=== PATIENT | male | born 1960 | race Caucasian/White ===

== ENCOUNTER → 2017-12-15 06:35 | Outpatient (CLI) | payer OTHER, SELFPAY ==
--- NOTE | 2017-12-15 | DI.MRI.S_ITS ---
PROCEDURE: MR ANKLE RT WO CON INDICATIONS: PAIN IN RIGHT ANKLE TECHNIQUE: Noncontrast sagittal T1 spin echo and T2 fast spin echo with fat saturation, axial proton density fast spin echo and T2 fast spin echo with fat saturation, coronal T1 spin echo and T2 fast spin echo with fat saturation through the ankle/hindfoot. COMPARISON: [facility], MR, ANKLE WITHOUT CONTRAST, 03/10/2013, 9:59. FINDINGS: Image quality: Diagnostic. Bones and joints: There is no acute fracture, dislocation or, or suspicious osseous lesion identified involving the midfoot or hindfoot joints. There are severe degenerative changes involving the midfoot and hindfoot joints, most pronounced involving the middle subtalar and talonavicular joints. Plantar tilt of the talus with respect to the calcaneus is evident. There is pes planus deformity. The ankle mortise is well-maintained without an osteochondral defect evident. Degenerative cystic changes noted involving the tip of the lateral malleolus. Additional scattered areas of degenerative cystic change are noted involving the talus, calcaneus, navicular, and all of the tarsal bones. The degree degenerative changes are slightly more prominent on the current study, compared to the prior study. Medial structures: The deltoid ligament is thickened, likely related to scarring. No full-thickness tear is evident. The spring ligament is also noted to be intact. The tibialis posterior tendon is not well-seen related to scarring along the medial aspect of the head of the talus. Tearing of the tendon is difficult to exclude. The flexor hallucis longus and flexor digitorum longus tendons are intact. The posterior tibial nerve through the region of the tarsal tunnel is noted to be thickened. Lateral structures: The anterior and posterior distal tibiofibular ligaments are moderately heterogeneous and irregular. Partial-thickness tearing may be present. There is scarring of the anterior and posterior talofibular ligaments. Heterogeneity of the calcaneofibular ligament is present. No complete tears are evident. The peroneus brevis and peroneus longus tendons are edematous and contain a moderate amount of fluid within their corresponding tendon sheaths. No significant tearing is evident. Anterior structures: The tibialis anterior, extensor hallucis longus, and extensor digitorum longus tendons appear intact. The dorsal talonavicular ligament appears intact. Posterior and plantar structures: There is mild edema involving the distal Achilles tendon. The plantar fascia appears to be within normal limits and is intact. IMPRESSION: 1. Severe degenerative changes of the midfoot and hindfoot joints have slightly progressed in the interim. There continues to be pes planus. 2. Scarring of the medial and lateral ankle ligaments. No complete tears are evident. 3. The posterior tibialis tendon is not clearly seen along the medial aspect of the talus, which probably is related to scarring from previous partial-thickness tearing. Please correlate clinically to exclude the possibility of a full-thickness tear at this location. 4. Mild tendinopathy and tenosynovitis of the peroneus brevis and peroneus longus. 5. Mild Achilles tendinopathy. 6. Nonspecific prominence of the posterior tibial nerve through the tarsal tunnel. Please correlate clinically to exclude tarsal tunnel syndrome. Dictated by: Jose King M.D. on 12/15/2017 at 9:17 Approved by: Jose King M.D. on 12/15/2017 at 9:45
== END ==
PROVIDERS: PCP Internal Medicine; Visit Provider Internal Medicine
DX: M25.571 Pain in right ankle and joints of right foot (principal); M19.071 Primary osteoarthritis, right ankle and foot; M21.41 Flat foot [pes planus] (acquired), right foot; M65.871 Other synovitis and tenosynovitis, right ankle and foot
CPT/HCPCS: 73721

== ENCOUNTER → 2018-05-20 15:07 | Outpatient (CLI) | payer OTHER, SELFPAY ==
[2018-05-20 16:56] LABS: Alanine Aminotransferase 34 IU/L (21-72); Albumin 4.4 g/dL (3.5-5.0); Albumin Globulin Ratio 1.7 (1.0-2.8); Alkaline Phosphatase 61 U/L (38-126); Aspartate Aminotransferase 23 IU/L (17-59); Bilirubin Total 0.4 mg/dL (0.2-1.3); Bilirubin Unconjugated 0.3 mg/dL (0.0-1.1); Globulin 2.6 g/dL (1.7-4.1); HEMOLYSIS < 15 (0-50)
== END ==
PROVIDERS: PCP Internal Medicine; Visit Provider Internal Medicine
DX: R07.89 Other chest pain (principal)
CPT/HCPCS: 36415; 80076

== ENCOUNTER → 2018-09-01 07:33 | Outpatient (CLI) | payer OTHER, SELFPAY ==
--- NOTE | 2018-09-01 | DI.MRI.S_ITS ---
PROCEDURE: MR LUMBAR SPINE WO CON INDICATIONS: LUMBAR BACK PAIN, RADICULOPATHY OF LUMBAR REGION TECHNIQUE: Noncontrast sagittal T1 spin echo and T2 fast echo, sagittal STIR, axial T1 and T2 fast spin echo through the lumbar spine. In cases with scoliosis, additional coronal T2 fast spin echo may be performed. COMPARISON: [facility], MR, L-SPINE WITHOUT CONTRAST, 10/06/2016, 19:45. FINDINGS: Image quality: Excellent. Alignment and Curvature: There is normal bony alignment. Bone Marrow: Marrow is of normal overall signal. No acute vertebral body compression fractures. Spinal Cord: Conus medullaris terminates at the L1-L2 level. Visualized cord demonstrates normal signal and size. Paraspinous Soft Tissues: No paravertebral masses. T12-L1: No canal stenosis or foraminal stenosis. Facet joints are unremarkable. L1-L2: Unchanged. Mild disc loss. No canal stenosis or foraminal stenosis. Mild facet hypertrophy. L2-L3: Unchanged. No canal stenosis or foraminal stenosis. Mild facet hypertrophy. L3-L4: No canal stenosis or foraminal stenosis. Mild facet hypertrophy. Unchanged. L4-L5: Moderate diffuse disc bulge and prominent facet and ligament hypertrophy result in moderate to severe canal stenosis. There is moderate bilateral foraminal stenosis with flattening of the nerve root sleeves. L5-S1: There is disc degeneration and mild degenerative retrolisthesis of L5 on S1 with associated mild diffuse posterior disc protrusion the S1 nerve roots are abutted bilaterally in the lateral recesses. There is bilateral facet hypertrophy. There is moderate bilateral foraminal narrowing with flattening of the nerve root sleeves. IMPRESSION: 1. At L4-L5, there is moderate to severe multifactorial canal stenosis. There is moderate bilateral foraminal stenosis. 2. At L5-S1, mild retrolisthesis of L5 on S1 and mild posterior disc protrusion is present. The S1 nerve roots are abutted in the lateral recesses. There is moderate bilateral foraminal narrowing. Dictated by: Delvis Torres M.D. on 09/01/2018 at 9:03 Approved by: Delvis Torres M.D. on 09/01/2018 at 9:18
== END ==
PROVIDERS: PCP Internal Medicine; Visit Provider Neurological Surgery
DX: M54.5 Low back pain (principal); M48.061 Spinal stenosis, lumbar region without neurogenic claudication; M51.17 Intervertebral disc disorders with radiculopathy, lumbosacral region; M43.17 Spondylolisthesis, lumbosacral region
CPT/HCPCS: 72148

== ENCOUNTER → 2019-06-24 13:41 | Outpatient (CLI) | payer OTHER, SELFPAY ==
--- NOTE | 2019-06-24 | DI.RAD.S_ITS ---
PROCEDURE: XR CERVICAL SPINE 2V OR 3V INDICATIONS: other spondylosis, Myelopathy, cervical region TECHNIQUE: 3 view(s) of the cervical spine were acquired. COMPARISON: None. FINDINGS: Bones: No fractures or dislocations to the T1 level. There has been anterior fusion plating between C5-6 and C6-7 with interbody disc prosthesis devices at the 2 intervening levels. No subluxation is present The lateral masses of C1 appear intact on the odontoid view. No suspicious bony lesions. Soft tissues: No prevertebral soft tissue swelling. IMPRESSION: Expected postoperative changes after discectomy and fusion between C5-C7. No acute disease, and no subluxation found. Mild degenerative disc disease seen 34 and C4-5. Dictated by: Jeff Madden M.D. on 06/24/2019 at 14:23 Approved by: Jeff Madden M.D. on 06/24/2019 at 14:24
== END ==
PROVIDERS: PCP General Practice; Referring Provider Neurological Surgery; Visit Provider Neurological Surgery
DX: M47.12 Other spondylosis with myelopathy, cervical region (principal); M50.01 Cervical disc disorder with myelopathy, high cervical region; Z98.1 Arthrodesis status
CPT/HCPCS: 72040

== ENCOUNTER → 2021-06-28 10:10 | Outpatient (CLI) | payer OTHER, SELFPAY ==
[2021-06-28 13:04] LABS: COVID19 -Nasal RAPID Negative (Negative)
== END ==
PROVIDERS: PCP General Practice; Visit Provider Family Medicine Sleep Medicine
DX: Z20.822 Contact with and (suspected) exposure to COVID-19 (principal)
CPT/HCPCS: 87635; C9803

== ENCOUNTER 2021-07-01 12:10 | Day surgery (SDC) | payer OTHER, SELFPAY ==
[2021-07-01] VITALS (7 sets, daily range): BP systolic 100–149; BP diastolic 72–91; PULSE 59–78; RESP 14–16; TEMP 36.1–36.7; O2SAT 96–100; BMI 25.8
--- NOTE | 2021-07-01 | PATH_ITS ---
[facility] Accession Number: [id number] . 01 Material submitted: . esophagus, E-G Junction - GE JUNCTION . 02 Diagnosis: GE Junction: Portion of mildly inflamed proximal gastric mucosa. Negative for intestinal metaplasia. Negative for dysplasia or malignancy. Negative for Helicobacter organisms by immunohistochemistry. MRV 07/05/2021 1348 Local . 02 Electronically signed: . Alyssa Ward MD, Pathologist NPI- [id number] . 01 Gross description: . GE JUNCTION: Received in formalin is 1 fragment(s) of noriega, soft tissue measuring 0.2 x 0.1 x 0.1 cm submitted entirely in 1 cassette(s) /CPE 07/02/2021 0621 Local . 02 Microscopic: . An immunohistochemical stain is performed to evaluate for Helicobacter organisms and is negative. The control stain shows appropriate reactivity. . * This test was developed and its performance characteristics determined by [facility]. It has not been cleared or approved by the U.S. Food and Drug Administration. The FDA has determined that such clearance or approval is not necessary. This test is used for clinical purposes. It should not be regarded as investigational or for research. . 02 Pathologist provided ICD-10: K22.70 . 02 CPT . 602903, [id number] Specimen Comment: A courtesy copy of this report has been sent to [phone] Performed at: 01 [facility] [address], [place], [place] [id number] MD Christian Stevenson MD Phone: [phone] Performed at: 02 [facility] [address] [place], [place] [id number] MD Jennifer Barker MD Phone: [phone]
--- NOTE | 2021-07-01 13:03 | PM.HP.1 ---
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 Patient History Medical History Aquino esophagus GERD (gastroesophageal reflux disease) Hiatal hernia Surgical History History of esophagogastroduodenoscopy (EGD) S/P cervical spinal fusion Meds Home Medications and Allergies Home Medications Medication Instructions Recorded Confirmed Type pantoprazole 40 mg tablet,delayed 40 mg PO DAILY 06/28/21 07/01/21 History release Allergies Allergy/AdvReac Type Severity Reaction Status Date / Time No Known Drug Allergies Allergy Verified 06/28/21 16:25 Review of Systems Review of Systems ROS: Yes All systems reviewed with the patient and are negative except as otherwise documented Exam Vital Signs (past 8 hours): - 07/01/21 12:50 Temperature 98.1 F Pulse Rate 68 Respiratory Rate 14 Blood Pressure 149/91 H Pulse Oximetry 100 Oxygen Delivery Method Room Air Const General: cooperative and comfortable Orientation: alert HENMT Head: normocephalic Ears: external ears normal Nose: external nose normal Face and sinus: normal facial exam Mouth: oral mucosae normal Eyes General: appearance normal, both eyes and all related structures Neck Neck: normal visual inspection Chest Chest: normal inspection of the chest Resp Effort & Inspection: normal respiratory effort Cardio Rate: regular rate GI Inspection: normal to inspection Skin General: no rashes or lesions noted and No jaundice Neuro General: patient alert and moves all extremities Cognition: normal cognition Speech: speech normal Extrem General: no pedal edema Psych Appearance: grossly normal Assessment & Plan Assessment & Plan narrative: 60-year-old male with a history of Barretts. Repeat EGD is pursued today. Time Spent With Patient Critical Care time: I spent a total of [] minutes of critical care time on this patient's care today; this time is exclusive of procedural time.
--- NOTE | 2021-07-01 13:05 | PM.PREOP ---
Pre-operative Note COVID-19 COVID-19 status: Negative Result date/Date tested (Pos, Neg/Pending): 06/28/21 Criteria for continued procedure: Possibility delay results in more complex future surgery or treatment Interval Note History & Physical reviewed/Exam performed by Physician: Yes Changes to H&P: No ASA Class (for procedural sedation): II
[2021-07-01] MEDS: SODIUM CHLORIDE 0.9% 1,000 ML 84 ML IV (13:16)
--- NOTE | 2021-07-01 14:14 | P.OP.EGD_ITS ---
Operative Date/Time/Diagnoses Date of procedure: 07/01/21 Time of procedure: 14:14 Pre-op diagnosis: Barretts Post-op diagnosis: same Procedure & Clinicians Study performed: EGD with biopsy Same procedure as scheduled: Yes Indications: Barretts Surgeon: Philip Carter Procedure Notes SCOAP/Timeout: Done Procedure in detail: After the risks and benefits were explained, written and verbal informed consent was obtained. The patient was brought into the procedure room and placed into the left lateral decubitus position. Please see nurse lacquer machine feeder notes for sedation details. The scope was introduced into the mouth through the bite block and advanced under direct visualization to the 2nd portion of the duodenum. The scope was slowly withdrawn carefully examining the mucosa for any defects or lesions. Retroflexed views were accomplished in the stomach. The stomach was decompressed, the scope was then removed from the patient who tolerated the procedure well. Sedation minutes: 9 Complications: none Impression: 1. Duodenum: This appeared visually normal from the bulb through the 2nd portion. 2. Stomach: No outlet obstruction. No ulcers no mass lesions no significant mucosal pathology appreciated throughout. Retroflexed views of the LES disclosed sliding hiatal hernia 3. Esophagus: The squamocolumnar junction generally correlated quite well with the top of the gastric folds. There was an approximately 2 cm sliding hiatal hernia. I did not identify any obvious tongue of Barretts as previously described 3 years ago. There was no evidence of any active inflammation anywhere. It was challenging to even place the forceps right at the GE junction just inside the hiatal hernia sac. I was able to do so and labeled this biopsy ?GE junction?. Endoscopic diagnosis 1. Hiatal hernia 2. No obvious visual Aquino's -histology pending Post-procedure Plan for aftercare: 1. Await histopathology 2. Continue anti-reflux therapy as necessary 3. Surveillance EGD may not be required if there is no suggestion of intestinal me taplasia upon histopathology review. Disposition: PACU
== END 2021-07-01 15:15 | disposition home or self-care (01) ==
PROVIDERS: PCP Internal Medicine; Referring Provider Internal Medicine Gastroenterology; Visit Provider Internal Medicine Gastroenterology
PROC: 0DJ08ZZ Inspection of Upper Intestinal Tract, Via Natural or Artificial Opening Endoscopic (ICD-10-PCS; CPT 43235; principal; 2021-07-01 14:30)
DX: K29.70 Gastritis, unspecified, without bleeding (principal); Z87.19 Personal history of other diseases of the digestive system; K44.9 Diaphragmatic hernia without obstruction or gangrene
CPT/HCPCS: 43239; J2704